=== PATIENT | female | born 1990 | race Asian ===

== ENCOUNTER 2018-04-11 16:35 | Outpatient (CLI) | payer MEDICAID ==
[2018-04-11 17:42] VITALS: BP 98/54
[2018-04-11] MEDS ORDERED: LACTATED RINGERS 500 ML IV ONE (18:03)
[2018-04-11 19:15] LABS: Bilirubin,Urine NEG (Negative); Blood,Urine NEG (Negative); Color,Urine Yellow (Yellow); Mucus,Urine 2+ /HPF
--- NOTE | 2018-04-11 20:18 | Ultrasound Report ---
FINAL REPORT EXAM: US OB LIMITED HISTORY: leakage of fluid for last 4-5 days TECHNIQUE: Limited Real-time sonography was performed of the gravid uterus to evaluate amniotic fluid. Images are submitted for interpretation. PRIORS: None. FINDINGS: There is a single fetus in the uterus in a cephalic presentation. The placenta is anterior. The amniotic fluid index is normal at 11.3 cm. The heart is beating at a rate of 146 beats per minute. IMPRESSION: Normal amniotic fluid index
== END 2018-04-11 20:27 | disposition home or self-care (01) ==
LOC: TRG 16:35
PROVIDERS: ATTEND Obstetrics & Gynecology
DX: O47.03 False labor before 37 completed weeks of gestation, third trimester (principal); Z3A.34 34 weeks gestation of pregnancy
CPT/HCPCS: 59025; 76815; 81001

== ENCOUNTER 2018-04-24 10:01 | Outpatient (CLI) | payer MEDICAID ==
[2018-04-24 10:27] VITALS: BP 116/58
[2018-04-24] MEDS ORDERED: LACTATED RINGERS 500 ML IV ONE (11:04)
[2018-04-24 11:59] LABS: Bacteria,Urine 1+ /HPF (Negative); Bilirubin,Urine NEG (Negative); Blood,Urine NEG (Negative); Color,Urine Yellow (Yellow); Mucus,Urine FEW /HPF; Protein,Urine <15 mg/dL mg/dL (Negative)
== END 2018-04-24 11:57 | disposition home or self-care (01) ==
LOC: TRG 10:01
PROVIDERS: ATTEND Obstetrics & Gynecology
DX: O47.03 False labor before 37 completed weeks of gestation, third trimester (principal); Z3A.36 36 weeks gestation of pregnancy; Z87.891 Personal history of nicotine dependence
CPT/HCPCS: 59025; 81001

== ENCOUNTER 2018-04-28 17:47 | Outpatient (CLI) | payer MEDICAID ==
[2018-04-28] MEDS ORDERED: ZOFRAN IV ONE (17:58)
[2018-04-28 18:17] VITALS: BP 99/56
[2018-04-28] MEDS ORDERED: LACTATED RINGERS 500 ML IV ONE (19:00)
[2018-04-28 19:36] LABS: Bilirubin,Urine NEG (Negative); Blood,Urine NEG (Negative); Color,Urine Yellow (Yellow); Mucus,Urine 3+ /HPF
[2018-04-28 20:44] LABS: Hematocrit 28.6 % (30.3-42.9); Hemoglobin 9.6 gm/dl (10.1-14.3); Mean Corpuscular HGB Conc 34 % (30-34); Mean Corpuscular Hemoglobin 32 pg (28-32); Mean Corpuscular Volume 96 fl (79-97); Platelet Count 284 K/mm3 (140-440); Red Blood Count 2.99 M/mm3 (3.65-5.03); Red Cell Distribution Width 15.8 % (13.2-15.2)
[2018-04-28 21:03] LABS: Albumin 3.3 g/dL (3.9-5); BUN/Creatinine Ratio 13; Blood Urea Nitrogen 5 mg/dL (7-17); Calcium 8.4 mg/dL (8.4-10.2); Hemolysis Index 5
[2018-04-28 21:30] LABS: Alanine Aminotransferase < 5 units/L (7-56)
== END 2018-04-28 22:10 | disposition home or self-care (01) ==
LOC: TRG 17:47
PROVIDERS: ATTEND Obstetrics & Gynecology
DX: O47.03 False labor before 37 completed weeks of gestation, third trimester (principal); Z3A.36 36 weeks gestation of pregnancy
CPT/HCPCS: 36415; 80053; 81001; 85027; J2405; J7120

== ENCOUNTER 2018-04-30 01:37 | Inpatient (IN) | payer MEDICAID ==
[2018-04-30] MEDS ORDERED: ZOFRAN IV PRN (02:25)
[2018-04-30] MEDS ORDERED: SUBLIMAZE IV PRN (02:25)
[2018-04-30] MEDS ORDERED: BRETHINE SUB-Q PRN (02:25)
[2018-04-30] MEDS ORDERED: XYLOCAINE 2% INFILTRATI ONE (02:25)
[2018-04-30] MEDS ORDERED: BRETHINE IVP PRN (02:25)
[2018-04-30] MEDS ORDERED: MINERAL OIL PO PRN (02:25)
--- NOTE | 2018-04-30 02:33 | History and Physical Report ---
History of Present Illness Date of examination: 04/30/18 Date of admission: 04/30/18 Chief complaint: contractions History of present illness: Pt presents c/o contractions a 4 minutes. She was seen in triage yesterday am as well as last week and cx was 2 to 3cm.This am cx is noted to be 4cm by triage nurse. Will admit at this time for active labor. EDC Confirmation: 05/19/2018 Gestational Age: 13 3/7 weeks Past History : 8 Term Births: 4 Premature Births: 0 Living Children: 3 Para: 4 Mult. Births: 0 Prev : 0 Aborta: 1 Elect. Ab: 0 Spont. Ab: 3 Ectopics: 0 # 1 Delivery date: 05/03/2010 Weeks Gestation: 39 Delivery type: Vaginal Anesthesia type: epidural Delivery location: [facility] Infant Sex: female weight: 6.50 Name: Esmer Comments: none # 2 Delivery date: 11/2010 Weeks Gestation: 3 Delivery type: SAB Comments: no D&C, seen at [place] # 3 Delivery date: 09/26/2011 Weeks Gestation: 39 Delivery type: Vaginal Anesthesia type: epidural Delivery location: [facility] Sex: female weight: 6.25 Comments: YESSENIA remained + X 2 for Chlamydia after appropriate treatment. # 4 Delivery date: 05/01/2014 Weeks Gestation: 38 Delivery type: Vaginal Anesthesia type: epidural Delivery location: [facility] Infant Sex: female weight: 6.25 Comments: rupture of membranes # 5 Delivery date: 03/11/2015 Weeks Gestation: 37 Delivery type: Vaginal Anesthesia type: IV medication Delivery location: [facility] Infant Sex: male weight: 6.38 Past Medical History: Reviewed history from 06/16/2010 and no changes required: Negative Past Medical History no hx of dvt while taking ocp Past Surgical History: Reviewed history from 10/22/2009 and no changes required: Negative Past Surgical History Past Medical History Abnormal PAP: negative JORDYN Exposure: negative Infertility: negative Uterine Anomaly: negative Uterine Surgery (not C/S): negative Other Gynecologic Problems: negative Social Hx: Marital Status: single Children: Occupation: family Infection History Hx of STD: chlamydia HIV Risk Eval: low risk Hepatitis B Risk Eval: low risk Personal hx. of genital herpes: no Partner hx. of genital herpes: no Rash, Viral, or Febrile illness since last LMP? no Varicella/Chicken Pox Status: Previous Disease Genetic History Congenital Heart Defect: Mom: no Dad: no Jose A Disease: Mom: no Dad: no Thalassemia Mom: no Dad: no Neural Tube Defect Mom: no Dad: no Down's Syndrome Mom: no Dad: no Rigo-Sachs Mom: no Dad: no Sickle Cell Disease/Trait Mom: no Dad: no Hemophilia Mom: no Dad: no Muscular Dystrophy Mom: no Dad: no Cystic Fibrosis Mom: no Dad: no [place] Chorea Mom: no Dad: no Mental Retardation Mom: no Dad: no Fragile X Mom: no Dad: no Other Genetic/Chromosomal Disorder Mom: no Dad: no Child w/other defect Mom: no Dad: no Enviromental Exposures Xray Exposure: no Medication, drug, or alcohol use since LMP: no Chemical/Other Exposure: no Exposure to Cat Liter: no Hx of Parvovirus (Fifth Disease): no Occupational Exposure to Children: none Active Medications (reviewed today): MOTION SICKNESS OTC () Current Allergies (reviewed today): * LATEX (Critical) Past History Past Medical History: other (see hpi) Past Surgical History: other (see hpi) [employer] ADMIN History: other (see hpi) Family/Genetic History: other (see hpi) Social history: other (see hpi) - Obstetrical History Expected Date of Delivery: 05/19/18 Actual Gestation: 37 Week(s) 2 Day(s) : 8 Para: 4 Spontaneous Abortions: 3 Number of Living Children: 3 Medications and Allergies Allergies Allergy/AdvReac Type Severity Reaction Status Date / Time Latex, Natural Rubber Allergy Unknown Unknown Verified 05/01/14 08:02 Home Medications Medication Instructions Recorded Confirmed Last Taken Type NIFEdipine*For Tocolysis only* 10 mg PO Q6HR #120 capsule 03/10/14 04/28/18 09:00 Rx [Procardia] HYDROcodone/APAP 5-325 [[place] 1 each PO Q6HR PRN #12 tablet 10/11/14 04/28/18 Unknown Rx 5/325] Ondansetron [Zofran] 4 mg PO Q6HR PRN #20 tablet 10/11/14 04/28/18 Unknown Rx Pnv,Calcium 72/Iron,Carb/Folic 1 each PO DAILY #30 tablet 10/11/14 04/28/18 Unknown Rx [ Plus Iron Tablet] Lidocain2.5%/Prilocai2.5% [[place]ml[place]] 5 gm TP PRN #1 tube 03/12/15 04/28/18 Unknown Rx - Vital Signs Vital signs: Vital Signs Pulse BP 107 H 113/68 04/30/18 01:48 04/30/18 01:48 Temp Pulse Resp BP Pulse Ox 91 H 113/68 99 04/30/18 02:27 04/30/18 01:48 04/30/18 02:27 Results All other labs normal. Assessment and Plan - Patient Problems (1) 37 weeks gestation of Current Visit: No Status: Acute (2) Active labor at term Current Visit: No Status: Acute Plan to address problem: -admit -anticipate
[2018-04-30] MEDS ORDERED: PITOCin/NS 20 UNIT/1000ML DRIP 20 UNITS/1,000 ML BAG IV SCH (03:00)
[2018-04-30] MEDS ORDERED: LACTATED RINGERS 1,000 ML IV SCH (03:00)
[2018-04-30] MEDS ORDERED: PITOCin/NS 30 UNIT/500ML 30 UNITS/500 ML BAG IV SCH ×2 (03:00)
[2018-04-30 03:26] LABS: Hematocrit 31.4 % (30.3-42.9); Hemoglobin 10.2 gm/dl (10.1-14.3); Mean Corpuscular HGB Conc 33 % (30-34); Mean Corpuscular Hemoglobin 31 pg (28-32); Mean Corpuscular Volume 95 fl (79-97); Platelet Count 280 K/mm3 (140-440); Red Blood Count 3.31 M/mm3 (3.65-5.03); Red Cell Distribution Width 15.2 % (13.2-15.2)
[2018-04-30] MEDS ORDERED: NARCAN 2 MG/2 ML IV PRN (05:58)
--- NOTE | 2018-04-30 05:58 | Anesthesia Consultation ---
Anesthesia Consult and Med Hx Date of service: 04/30/18 - Airway Anesthetic Teeth Evaluation: Good ROM Head & Neck: Adequate Mental/Hyoid Distance: Adequate Mallampati Class: Class II Intubation Access Assessment: Good - Pulmonary Exam CTA: Yes - Cardiac Exam Cardiac Exam: No Murmur - Pre-Operative Health Status ASA Pre-Surgery Classification: ASA2 Proposed Anesthetic Plan: Epidural - Pulmonary Hx Smoking: Yes Hx Asthma: No COPD: No Hx Pneumonia: No - Cardiovascular System Hx Hypertension: No - Central Nervous System Hx Seizures: No Hx Psychiatric Problems: Yes (major depression) - Endocrine Hx Renal Disease: No Hx End Stage Renal Disease: No Hx Hypothyroidism: No Hx Hyperthyroidism: No - Hematic Hx Anemia: Yes Hx Sickle Cell Disease: No - Other Systems Hx Alcohol Use: No
[2018-04-30] MEDS ORDERED: fentaNYL-BUPIV 2 MCG/ML-0.125% 200 MCG/100 ML BAG EPIDURAL SCH (06:00)
--- NOTE | 2018-04-30 06:00 | Progress Note ---
Assessment and Plan Pt comfortable with epidural. CTX are very irregular. Will start pitocin per protocol @ this time. SVE 5-6,70,-1 Re-eval as needed Subjective - Subjective Date of service: 04/30/18 (comfortable with epidural) Patient reports: movement normal Objective - Vital Signs Vital Signs: Vital Signs - 12hr 04/30/18 04/30/18 04/30/18 01:48 02:02 02:07 Temperature Pulse Rate 107 H 96 H 94 H Respiratory Rate Blood Pressure 113/68 O2 Sat by Pulse 98 98 Oximetry 04/30/18 04/30/18 04/30/18 02:12 02:17 02:22 Temperature Pulse Rate 100 H 93 H 95 H Respiratory Rate Blood Pressure O2 Sat by Pulse 99 99 99 Oximetry 04/30/18 04/30/18 04/30/18 02:27 02:32 02:37 Temperature Pulse Rate 91 H 88 89 Respiratory Rate Blood Pressure O2 Sat by Pulse 99 99 98 Oximetry 04/30/18 04/30/18 04/30/18 03:28 05:17 05:22 Temperature 99.4 F Pulse Rate 89 83 Respiratory 20 Rate Blood Pressure O2 Sat by Pulse 98 98 Oximetry 04/30/18 04/30/18 04/30/18 05:27 05:29 05:32 Temperature Pulse Rate 93 H 97 H 98 H Respiratory Rate Blood Pressure O2 Sat by Pulse 100 90 97 Oximetry 04/30/18 04/30/18 04/30/18 05:37 05:42 05:46 Temperature Pulse Rate 101 H 98 H 90 Respiratory Rate Blood Pressure O2 Sat by Pulse 100 97 88 Oximetry 04/30/18 04/30/18 04/30/18 05:47 05:49 05:50 Temperature Pulse Rate 86 82 82 Respiratory Rate Blood Pressure 116/55 109/57 O2 Sat by Pulse 97 Oximetry 04/30/18 04/30/18 04/30/18 05:52 05:54 05:56 Temperature Pulse Rate 85 86 78 Respiratory Rate Blood Pressure 112/56 109/59 106/55 O2 Sat by Pulse 97 Oximetry 04/30/18 05:57 Temperature Pulse Rate 86 Respiratory Rate Blood Pressure O2 Sat by Pulse 97 Oximetry - Exam Breasts: deferred Cardiovascular: Regular rate Lungs: Normal air movement Abdomen: Present: normal appearance, soft. Absent: distention, tenderness Uterus: Present: normal FHR: auscultation normal, category 1 Uterine Contraction Monitor Mode: External Cervical Dilatation: 5.5 Cervical Effacement Percentage: 70 station: -1 Uterine Contraction Pattern: Irregular Uterine Contraction Intensity: Mild Extremities: normal Deep Tendon Reflex Grade: Normal +2 - Labs Labs: Abnormal Labs 04/30/18 03:00 RBC 3.31 L Laboratory Results - last 24 hr 04/30/18 04/30/18 03:00 03:00 WBC 7.7 RBC 3.31 L Hgb 10.2 Hct 31.4 MCV 95 MCH 31 MCHC 33 RDW 15.2 Plt Count 280 Blood Type O POSITIVE Antibody Screen Negative
[2018-04-30] MEDS: PITOCin/NS 30 UNIT/500ML 30 UNITS/500 ML BAG IV SCH ×2 (07:43→08:43)
[2018-04-30] MEDS ORDERED: MARCAINE 0.5% INFILTRATI ONE (09:07)
[2018-04-30] MEDS ORDERED: METHERGINE IM ONE ×2 (10:45→11:17)
[2018-04-30] MEDS ORDERED: PHENERGAN PO PRN (11:18)
[2018-04-30] MEDS ORDERED: TYLENOL PO PRN (11:18)
[2018-04-30] MEDS ORDERED: DULCOLAX PR PRN (11:18)
[2018-04-30] MEDS ORDERED: TUCKS PAD TP PRN (11:18)
[2018-04-30] MEDS ORDERED: LANSINOH TP PRN (11:18)
[2018-04-30] MEDS ORDERED: MILK OF MAGNESIA PO PRN (11:18)
[2018-04-30] MEDS ORDERED: BENADRYL PO PRN (11:18)
[2018-04-30] MEDS ORDERED: BENADRYL ONE (12:00)
[2018-04-30] MEDS ORDERED: SODIUM CHLORIDE FLUSH SYRINGE 10 ML IV NR (12:00)
--- NOTE | 2018-04-30 12:14 | Procedure Note ---
OB Delivery Note - Delivery Date of Delivery: 04/30/18 Plumber'S Assistant: KAILA RIVERO Estimated blood loss: 500cc - Vaginal Delivery presentation: vertex Delivery position: OA Intrapartum events: none Delivery induction: none Delivery augmentation: rupture of membranes Delivery monitor: external FHT, external uterine Route of delivery: Delivery placenta: spontaneous Delivery cord: 3 umbilical vessels Episiotomy: none Delivery laceration: none Anesthesia: epidural Delivery comments: live born femaile over intact perineum. Baby placed skin to skin on mom's abdomen. Cord blood obtained. Placenta and membrane delivered complete and intact, 3 vessel cord. Pit IVFs. Noted large amt of clots. Fundal massage, uterus explored, several moderate size clots expressed. Methergine IM given. 8/9, EBL 500, wgt 5-10 Mother and baby remain LDR stable. FF @ umb Lochia moderate. PO Methergine ordered X 24 hours. - A at 1 minute: 8 at 5 minutes: 9 Infant Gender: Female (wgt 5-10)
[2018-04-30] MEDS: MOTRIN PO SCH ×2 (13:10→22:31)
[2018-04-30] MEDS: METHERGINE PO SCH ×2 (15:15→22:32)
[2018-04-30] MEDS: NORCO 5/325 PO PRN ×2 (16:30→22:34)
[2018-04-30] MEDS: COLACE PO SCH (22:33)
[2018-05-01] MEDS: METHERGINE PO SCH (05:47)
[2018-05-01] MEDS: MOTRIN PO SCH ×3 (05:48→13:44)
--- NOTE | 2018-05-01 08:25 | Discharge Summary ---
Providers - Providers Date of Admission: 04/30/18 02:52 Date of discharge: 05/01/18 (pt agrees to d/c) Attending physician: MIRELLA CHAVIRA Primary care physician: MIRELLA CHAVIRA Hospitalization Reason for admission: active labor Delivery: Episiotomy: none Laceration: none Incision: normal Other procedures: none complications: none Discharge diagnosis: IUP at term delivered baby: female Hospital course: uncomplicated vaginal delivery Pt resting c/o some pain in her back Pt has complete ROM No obvious bruising noted @ epidural site VSS FF below umb Lochia small Perineum intact H&H 06/05 stable Doing well s/p vag delivery P: d/c today with instructions RTO 4 weeks PP care. RX Mottrin provided Condition at discharge: Good Disposition: DC-01 TO HOME OR SELFCARE - Discharge Diagnoses (1) Spontaneous vaginal delivery Status: Acute Comment: RTO 4 weeks PP care Plan - Provider Discharge Summary Activity: routine, no sex for 6 weeks, no heavy lifting 4 weeks, no strenuous exercise Diet: routine Instructions: routine Additional instructions: [] Smoking cessation referral if applicable(refer to patient education folder for contact #) [] Refer to [facility]'s [facility] Booklet Call your doctor immediately for: * Fever > 100.5 * Heavy vaginal bleeding ( >1 pad per hour) * Severe persistent headache * Shortness of breath * Reddened, hot, painful area to leg or breast * Drainage or odor from incision. * Keep incision clean and dry at all times and follow doctor's instructions regarding bathing/showering - Follow up plan Follow up: MIRELLA CHAVIRA MD [Primary Care Provider] - 05/31/18 (Congratulations! Please call [phone] to schedule your visit in 4 weeks. Take medication as prescribed. Call with concerns.)
[2018-05-01] MEDS: COLACE PO SCH (10:39)
[2018-05-01] MEDS: PRENATAL VITAMIN PO SCH (10:39)
[2018-05-01] MEDS: NORCO 5/325 PO PRN (17:01)
[2018-05-02] MEDS: MOTRIN PO SCH ×4 (00:20→12:32)
[2018-05-02] MEDS: COLACE PO SCH ×2 (00:22→10:48)
[2018-05-02] MEDS ORDERED: BOOSTRIX IM ONE (06:00)
[2018-05-02] MEDS: PRENATAL VITAMIN PO SCH (10:48)
[2018-05-02 20:11] VITALS: BP 103/59
== END 2018-05-02 16:00 | disposition home or self-care (01) | DRG 775 ==
LOC: TRG 01:37 → LD 02:52 → OB 13:04
PROVIDERS: ADMIT Obstetrics & Gynecology; ATTEND Obstetrics & Gynecology
PROC: 10E0XZZ Delivery of Products of Conception, External Approach (ICD-10-PCS; principal; 2018-04-30)
PROC: 3E0R3BZ Introduction of Anesthetic Agent into Spinal Canal, Percutaneous Approach (ICD-10-PCS; 2018-04-30)
PROC: 00HU33Z Insertion of Infusion Device into Spinal Canal, Percutaneous Approach (ICD-10-PCS; 2018-04-30)
PROC: 3E0234Z Introduction of Serum, Toxoid and Vaccine into Muscle, Percutaneous Approach (ICD-10-PCS; 2018-05-02)
DX: O99.344 Other mental disorders complicating childbirth (principal); F32.9 Major depressive disorder, single episode, unspecified; Z3A.37 37 weeks gestation of pregnancy; Z37.0 Single live birth; Z23 Encounter for immunization
CPT/HCPCS: 36415; 85014; 85018; 85027; 86592; 86850; 86900; 86901; 90471; 90715; 99211; G0463; J1200; J2210; J2590; J7120